=== PATIENT | female | born 1960 | race Caucasian/White ===

== ENCOUNTER 2021-07-05 12:41 | Inpatient (IN) ==
[2021-07-06] MEDS ORDERED: Dextrose Gel 15 GM/37.5 ML TUBE PO PRN ×2 (20:22)
[2021-07-06] MEDS ORDERED: D5% in Water 1,000 ML IVC PRN (20:22)
[2021-07-06] MEDS ORDERED: *HR* Dextrose 50 % in Water (Syg) 50 ML SYRINGE IVP PRN (20:22)
[2021-07-06] MEDS: Sucralfate 1 GM TABLET PO SCH (23:41)
[2021-07-06] MEDS: OLANZapine 5 MG TAB.RAPDIS PO SCH (23:41)
[2021-07-06] MEDS: rOPINIRole 1 MG TABLET PO SCH (23:41)
[2021-07-06] MEDS: Ipratropium/Albuterol Neb 3 ML IH SCH (23:42)
[2021-07-06] MEDS: Melatonin 3 MG TABLET PO PRN (23:42)
[2021-07-06] MEDS: diazePAM 5 MG TABLET PO SCH (23:42)
[2021-07-06] MEDS: Divalproex (12 HR) 500 MG TABLET PO SCH (23:42)
[2021-07-06] MEDS: Gabapentin 400 MG CAPSULE PO SCH (23:58)
[2021-07-06] MEDS: Insulin LISPRO 300 UNITS/3 ML VIAL SUBQ SCH ×2 (23:59)
[2021-07-07] MEDS: OLANZapine 5 MG TAB.RAPDIS PO SCH ×3 (00:03→22:02)
[2021-07-07] MEDS: Sucralfate 1 GM TABLET PO SCH ×6 (00:03→22:01)
[2021-07-07] MEDS: diazePAM 5 MG TABLET PO SCH ×5 (00:03→22:01)
[2021-07-07] MEDS: rOPINIRole 1 MG TABLET PO SCH ×3 (00:03→22:01)
[2021-07-07] MEDS: Divalproex (12 HR) 500 MG TABLET PO SCH ×3 (00:03→22:07)
[2021-07-07] MEDS: Melatonin 3 MG TABLET PO PRN (01:21)
[2021-07-07] MEDS: Ipratropium/Albuterol Neb 3 ML IH SCH ×5 (03:47→20:02)
[2021-07-07 05:57] LABS: Basophils # 0.1 K/mcL (0.0-0.2); Basophils % 0.6 %; Hematocrit 29.2 % (35.3-44.9); Hemoglobin 9.5 g/dL (11.5-15.4); Mean Corpuscular HGB Conc 32.5 g/dL (31.6-35.5); Mean Corpuscular Hemoglobin 32.8 pg (28.0-33.3); Mean Corpuscular Volume 100.7 fL (83.0-100.0); Mean Platelet Volume 9.6 fL (9.4-12.4); Monocytes # 1.2 K/mcL (0.0-1.3); Nucleated Red Blood Cells 0.2 /100 WBC (0); Platelet Count 366 K/mcL (140-400); Red Cell Distribution Width 14.5 % (11.5-14.5); White Blood Count 10.3 K/mcL (4.3-11.1)
[2021-07-07 07:06] LABS: Eosinophils # 0.4 K/mcL (0.0-0.6); Eosinophils % 3.4 %; Immature Granulocytes % 4.9 % (0-4); Lymphocytes % 19.8 %; Monocytes % 11.3 %
[2021-07-07 07:09] LABS: Neutrophils # 6.2 K/mcL (1.6-8.9)
[2021-07-07 07:17] LABS: Alanine Aminotransferase 17 Units/L (7-52); Albumin 3.5 g/dL (3.5-5.7); Albumin/Globulin Ratio 1.3 (1.1-2.2); Alkaline Phosphatase 57 Units/L (34-104); Aspartate Amino Transferase 18 Units/L (13-39); BUN/Creatinine Ratio 41 (6-26); Bilirubin,Total 0.3 mg/dL (0.3-1.0); Blood Urea Nitrogen 29 mg/dL (8-23); Calcium 9.9 mg/dL (8.6-10.3); Carbon Dioxide 29 mEq/L (23-29); Chloride 97 mEq/L (98-107); Globulin 2.7 g/dL (2.4-3.5); Glucose 117 mg/dL (70-105); Magnesium 1.7 mg/dL (1.6-2.6); Osmolality,Calculated 289 (280-300); Potassium 4.4 mEq/L (3.5-5.1); Sodium 136 mEq/L (136-145); Total Protein 6.2 g/dL (6.4-8.9); eGFR For African Americans > 60 (> 60); eGFR For Non-African Americans > 60 (> 60)
[2021-07-07 07:36] LABS: Thyroid Stimulating Hormone 3.462 mcIU/mL (0.340-5.600)
[2021-07-07] MEDS: Gabapentin 300 MG CAPSULE PO SCH (09:37)
[2021-07-07] MEDS: *HR* Metformin 500 MG TABLET PO SCH ×2 (09:37→15:38)
[2021-07-07] MEDS: Cholecalciferol (D-3) 1,000 UNIT (25MCG) TABLET PO SCH (09:37)
[2021-07-07] MEDS: Ascorbic Acid 500 MG TABLET PO SCH (09:37)
[2021-07-07] MEDS: Insulin LISPRO 300 UNITS/3 ML VIAL SUBQ SCH ×4 (10:57→22:01)
[2021-07-07 13:12] LABS: Adenovirus Not Detected (Not Detect); Bordetella Pertussis Not Detected (Not Detect); Chlamydophila pneumoniae Not Detected (Not Detect); Coronavirus 229E Not Detected (Not Detect); Coronavirus HKU1 Not Detected (Not Detect); Coronavirus NL63 Not Detected (Not Detect); Coronavirus OC43 Not Detected (Not Detect); Human Metapneumovirus Not Detected (Not Detect); Human Rhinovirus/Enterovirus Not Detected (Not Detect); Influenza A Subtype 2009 H1 Not Detected (Not Detect); Influenza B Not Detected (Not Detect); Mycoplasma pneumoniae Not Detected (Not Detect); Parainfluenza Virus 1 Not Detected (Not Detect); Parainfluenza Virus 2 Not Detected (Not Detect); Parainfluenza Virus 3 Not Detected (Not Detect); Parainfluenza Virus 4 Not Detected (Not Detect); Respiratory Syncytial Virus Not Detected (Not Detect); SARS-CoV-2 Not Detected (Not Detect)
[2021-07-07] MEDS: *HR* Enoxaparin 60 MG/0.6 ML SYRINGE SQ SCH (17:05)
[2021-07-07] MEDS: Gabapentin 400 MG CAPSULE PO SCH (22:01)
[2021-07-08] MEDS: Ipratropium/Albuterol Neb 3 ML IH SCH ×6 (01:00→19:46)
[2021-07-08] MEDS: Sucralfate 1 GM TABLET PO SCH ×4 (05:06→20:48)
[2021-07-08] MEDS: *HR* Enoxaparin 60 MG/0.6 ML SYRINGE SQ SCH ×2 (05:06→16:23)
[2021-07-08] MEDS: diazePAM 5 MG TABLET PO SCH ×3 (07:49→20:47)
[2021-07-08] MEDS: Cholecalciferol (D-3) 1,000 UNIT (25MCG) TABLET PO SCH (07:49)
[2021-07-08] MEDS: Ascorbic Acid 500 MG TABLET PO SCH (07:49)
[2021-07-08] MEDS: Gabapentin 300 MG CAPSULE PO SCH (07:49)
[2021-07-08] MEDS: *HR* Metformin 500 MG TABLET PO SCH ×2 (07:49→16:23)
[2021-07-08] MEDS: Insulin LISPRO 300 UNITS/3 ML VIAL SUBQ SCH ×4 (07:53→20:47)
[2021-07-08] MEDS: *HR* HYDROcodone/Acet 5/325 mg TABLET PO PRN (11:42)
[2021-07-08] MEDS: haloperidoL 1 MG TABLET PO PRN (13:18)
[2021-07-08] MEDS: Divalproex (12 HR) 250 MG TABLET PO SCH ×2 (13:19→20:47)
[2021-07-08] MEDS: OLANZapine 5 MG TAB.RAPDIS PO SCH (20:46)
[2021-07-08] MEDS: Melatonin 3 MG TABLET PO PRN (20:46)
[2021-07-08] MEDS: rOPINIRole 1 MG TABLET PO SCH (20:48)
[2021-07-08] MEDS: Gabapentin 400 MG CAPSULE PO SCH (21:01)
[2021-07-09] MEDS: Ipratropium/Albuterol Neb 3 ML IH SCH ×7 (03:51→23:53)
[2021-07-09] MEDS: Sucralfate 1 GM TABLET PO SCH ×4 (05:54→21:26)
[2021-07-09] MEDS: *HR* Enoxaparin 60 MG/0.6 ML SYRINGE SQ SCH ×2 (05:54→16:53)
[2021-07-09] MEDS: Insulin LISPRO 300 UNITS/3 ML VIAL SUBQ SCH ×4 (09:27→21:37)
[2021-07-09] MEDS: Cholecalciferol (D-3) 1,000 UNIT (25MCG) TABLET PO SCH (09:28)
[2021-07-09] MEDS: diazePAM 5 MG TABLET PO SCH ×3 (09:29→21:26)
[2021-07-09] MEDS: *HR* Metformin 500 MG TABLET PO SCH ×2 (09:29→16:53)
[2021-07-09] MEDS: Ascorbic Acid 500 MG TABLET PO SCH (09:29)
[2021-07-09] MEDS: Gabapentin 300 MG CAPSULE PO SCH (09:29)
[2021-07-09] MEDS: rOPINIRole 1 MG TABLET PO SCH (21:25)
[2021-07-09] MEDS: Divalproex (12 HR) 250 MG TABLET PO SCH (21:25)
[2021-07-09] MEDS: OLANZapine 5 MG TAB.RAPDIS PO SCH (21:26)
[2021-07-09] MEDS: Gabapentin 400 MG CAPSULE PO SCH (21:37)
[2021-07-10] MEDS: Ipratropium/Albuterol Neb 3 ML IH SCH ×5 (03:58→19:58)
[2021-07-10] MEDS: *HR* Enoxaparin 60 MG/0.6 ML SYRINGE SQ SCH ×2 (05:59→18:22)
[2021-07-10] MEDS: *HR* HYDROcodone/Acet 5/325 mg TABLET PO PRN ×2 (05:59→18:21)
[2021-07-10] MEDS: Sucralfate 1 GM TABLET PO SCH ×4 (05:59→21:12)
[2021-07-10] MEDS: Insulin LISPRO 300 UNITS/3 ML VIAL SUBQ SCH ×4 (10:07→20:56)
[2021-07-10] MEDS: Cholecalciferol (D-3) 1,000 UNIT (25MCG) TABLET PO SCH (10:08)
[2021-07-10] MEDS: *HR* Metformin 500 MG TABLET PO SCH ×2 (10:09→18:20)
[2021-07-10] MEDS: diazePAM 5 MG TABLET PO SCH ×3 (10:09→21:10)
[2021-07-10] MEDS: Ascorbic Acid 500 MG TABLET PO SCH (10:09)
[2021-07-10] MEDS: Gabapentin 300 MG CAPSULE PO SCH (10:09)
[2021-07-10] MEDS: haloperidoL 1 MG TABLET PO PRN (12:44)
[2021-07-10] MEDS: Divalproex (12 HR) 250 MG TABLET PO SCH (21:11)
[2021-07-10] MEDS: rOPINIRole 1 MG TABLET PO SCH (21:13)
[2021-07-10] MEDS: OLANZapine 5 MG TAB.RAPDIS PO SCH (21:14)
[2021-07-10] MEDS: Gabapentin 400 MG CAPSULE PO SCH (21:17)
[2021-07-11] MEDS: Ipratropium/Albuterol Neb 3 ML IH SCH ×6 (00:04→20:27)
[2021-07-11] MEDS: *HR* Enoxaparin 60 MG/0.6 ML SYRINGE SQ SCH ×2 (05:02→18:03)
[2021-07-11] MEDS: Sucralfate 1 GM TABLET PO SCH ×4 (05:03→20:23)
[2021-07-11] MEDS: *HR* HYDROcodone/Acet 5/325 mg TABLET PO PRN ×2 (05:24→22:27)
[2021-07-11 06:47] LABS: Hematocrit 28.7 % (35.3-44.9); Mean Corpuscular HGB Conc 31.4 g/dL (31.6-35.5); Mean Corpuscular Hemoglobin 32.7 pg (28.0-33.3); Mean Corpuscular Volume 104.4 fL (83.0-100.0); Mean Platelet Volume 10.6 fL (9.4-12.4); Platelet Count 392 K/mcL (140-400); Red Blood Count 2.75 M/mcL (3.82-4.97); Red Cell Distribution Width 14.7 % (11.5-14.5); White Blood Count 9.9 K/mcL (4.3-11.1)
[2021-07-11 07:14] LABS: Alanine Aminotransferase 13 Units/L (7-52); Albumin 3.5 g/dL (3.5-5.7); Albumin/Globulin Ratio 1.5 (1.1-2.2); Alkaline Phosphatase 66 Units/L (34-104); Aspartate Amino Transferase 11 Units/L (13-39); BUN/Creatinine Ratio 18 (6-26); Bilirubin,Total 0.3 mg/dL (0.3-1.0); Blood Urea Nitrogen 13 mg/dL (8-23); Calcium 8.9 mg/dL (8.6-10.3); Carbon Dioxide 28 mEq/L (23-29); Chloride 98 mEq/L (98-107); Globulin 2.4 g/dL (2.4-3.5); Glucose 85 mg/dL (70-105); Magnesium 1.3 mg/dL (1.6-2.6); Osmolality,Calculated 277 (280-300); Potassium 4.7 mEq/L (3.5-5.1); Sodium 134 mEq/L (136-145); Total Protein 5.9 g/dL (6.4-8.9); eGFR For African Americans > 60 (> 60); eGFR For Non-African Americans > 60 (> 60)
[2021-07-11] MEDS: Insulin LISPRO 300 UNITS/3 ML VIAL SUBQ SCH (08:34)
[2021-07-11] MEDS: Cholecalciferol (D-3) 1,000 UNIT (25MCG) TABLET PO SCH (08:35)
[2021-07-11] MEDS: Gabapentin 300 MG CAPSULE PO SCH (08:36)
[2021-07-11] MEDS: *HR* Metformin 500 MG TABLET PO SCH ×2 (08:36→17:59)
[2021-07-11] MEDS: Ascorbic Acid 500 MG TABLET PO SCH (08:36)
[2021-07-11] MEDS: diazePAM 5 MG TABLET PO SCH ×3 (08:37→20:21)
[2021-07-11] MEDS: Divalproex (12 HR) 250 MG TABLET PO SCH (20:20)
[2021-07-11] MEDS: rOPINIRole 1 MG TABLET PO SCH (20:21)
[2021-07-11] MEDS: OLANZapine 5 MG TAB.RAPDIS PO SCH (20:22)
[2021-07-11] MEDS: Magnesium Oxide 400 MG TABLET PO SCH (20:23)
[2021-07-11] MEDS: Gabapentin 400 MG CAPSULE PO SCH (20:23)
[2021-07-12] MEDS: Ipratropium/Albuterol Neb 3 ML IH SCH ×7 (00:43→23:43)
[2021-07-12] MEDS: *HR* HYDROcodone/Acet 5/325 mg TABLET PO PRN ×2 (03:14→21:29)
[2021-07-12] MEDS: *HR* Enoxaparin 60 MG/0.6 ML SYRINGE SQ SCH ×2 (06:38→16:44)
[2021-07-12] MEDS: Magnesium Oxide 400 MG TABLET PO SCH ×2 (09:36→20:24)
[2021-07-12] MEDS: *HR* Metformin 500 MG TABLET PO SCH ×2 (09:36→16:43)
[2021-07-12] MEDS: diazePAM 5 MG TABLET PO SCH ×3 (09:36→20:24)
[2021-07-12] MEDS: Gabapentin 300 MG CAPSULE PO SCH (09:36)
[2021-07-12] MEDS: Cholecalciferol (D-3) 1,000 UNIT (25MCG) TABLET PO SCH (09:36)
[2021-07-12] MEDS: Sucralfate 1 GM TABLET PO SCH ×4 (09:36→20:24)
[2021-07-12] MEDS: Ascorbic Acid 500 MG TABLET PO SCH (09:36)
[2021-07-12] MEDS: rOPINIRole 1 MG TABLET PO SCH (20:23)
[2021-07-12] MEDS: Divalproex (12 HR) 250 MG TABLET PO SCH (20:23)
[2021-07-12] MEDS: OLANZapine 5 MG TAB.RAPDIS PO SCH (20:23)
[2021-07-12] MEDS: Melatonin 3 MG TABLET PO PRN (20:24)
[2021-07-12] MEDS: Gabapentin 400 MG CAPSULE PO SCH (20:24)
[2021-07-13] MEDS: Ipratropium/Albuterol Neb 3 ML IH SCH ×6 (03:57→23:47)
[2021-07-13] MEDS: *HR* HYDROcodone/Acet 5/325 mg TABLET PO PRN ×2 (04:59→21:32)
[2021-07-13] MEDS: *HR* Enoxaparin 60 MG/0.6 ML SYRINGE SQ SCH ×2 (05:00→16:49)
[2021-07-13] MEDS: Sucralfate 1 GM TABLET PO SCH ×4 (05:00→20:03)
[2021-07-13] MEDS: Magnesium Oxide 400 MG TABLET PO SCH ×2 (08:09→19:57)
[2021-07-13] MEDS: Cholecalciferol (D-3) 1,000 UNIT (25MCG) TABLET PO SCH (08:09)
[2021-07-13] MEDS: Ascorbic Acid 500 MG TABLET PO SCH (08:09)
[2021-07-13] MEDS: *HR* Metformin 500 MG TABLET PO SCH ×2 (08:09→16:49)
[2021-07-13] MEDS: diazePAM 5 MG TABLET PO SCH ×3 (08:09→19:57)
[2021-07-13] MEDS: Gabapentin 300 MG CAPSULE PO SCH (08:09)
[2021-07-13] MEDS: OLANZapine 5 MG TAB.RAPDIS PO SCH (19:56)
[2021-07-13] MEDS: rOPINIRole 1 MG TABLET PO SCH (19:57)
[2021-07-13] MEDS: Divalproex (12 HR) 250 MG TABLET PO SCH (19:57)
[2021-07-13] MEDS: Melatonin 3 MG TABLET PO PRN (20:03)
[2021-07-13] MEDS: Gabapentin 400 MG CAPSULE PO SCH (20:04)
[2021-07-14] MEDS: Ipratropium/Albuterol Neb 3 ML IH SCH ×6 (03:28→20:37)
[2021-07-14] MEDS: *HR* Enoxaparin 60 MG/0.6 ML SYRINGE SQ SCH ×2 (03:44→16:43)
[2021-07-14] MEDS: Sucralfate 1 GM TABLET PO SCH ×4 (09:55→20:20)
[2021-07-14] MEDS: diazePAM 5 MG TABLET PO SCH ×3 (09:56→20:18)
[2021-07-14] MEDS: Gabapentin 300 MG CAPSULE PO SCH (09:57)
[2021-07-14] MEDS: Magnesium Oxide 400 MG TABLET PO SCH ×2 (09:58→20:19)
[2021-07-14] MEDS: *HR* Metformin 500 MG TABLET PO SCH ×2 (09:58→16:46)
[2021-07-14] MEDS: Ascorbic Acid 500 MG TABLET PO SCH (09:58)
[2021-07-14] MEDS: Cholecalciferol (D-3) 1,000 UNIT (25MCG) TABLET PO SCH (09:59)
[2021-07-14] MEDS: Divalproex (12 HR) 250 MG TABLET PO SCH (20:15)
[2021-07-14] MEDS: rOPINIRole 1 MG TABLET PO SCH (20:16)
[2021-07-14] MEDS: Gabapentin 400 MG CAPSULE PO SCH (20:17)
[2021-07-14] MEDS: OLANZapine 5 MG TAB.RAPDIS PO SCH (20:17)
[2021-07-15] MEDS: Ipratropium/Albuterol Neb 3 ML IH SCH ×5 (03:36→19:48)
[2021-07-15] MEDS: *HR* Enoxaparin 60 MG/0.6 ML SYRINGE SQ SCH ×2 (04:29→16:57)
[2021-07-15] MEDS: *HR* HYDROcodone/Acet 5/325 mg TABLET PO PRN (04:48)
[2021-07-15] MEDS: Sucralfate 1 GM TABLET PO SCH ×4 (04:49→20:13)
[2021-07-15] MEDS: Magnesium Oxide 400 MG TABLET PO SCH ×2 (09:13→20:11)
[2021-07-15] MEDS: Gabapentin 300 MG CAPSULE PO SCH (09:13)
[2021-07-15] MEDS: Cholecalciferol (D-3) 1,000 UNIT (25MCG) TABLET PO SCH (09:13)
[2021-07-15] MEDS: *HR* Metformin 500 MG TABLET PO SCH ×2 (09:13→16:57)
[2021-07-15] MEDS: Ascorbic Acid 500 MG TABLET PO SCH (09:14)
[2021-07-15] MEDS: diazePAM 5 MG TABLET PO SCH ×3 (09:14→20:11)
[2021-07-15 11:19] LABS: Basophils % 0.3 %; Eosinophils # 0.2 K/mcL (0.0-0.6); Eosinophils % 1.7 %; Hematocrit 30.7 % (35.3-44.9); Hemoglobin 9.5 g/dL (11.5-15.4); Immature Granulocytes % 1.2 % (0-4); Lymphocytes # 1.4 K/mcL (0.6-4.6); Lymphocytes % 15.2 %; Mean Corpuscular HGB Conc 30.9 g/dL (31.6-35.5); Mean Corpuscular Hemoglobin 32.8 pg (28.0-33.3); Mean Corpuscular Volume 105.9 fL (83.0-100.0); Mean Platelet Volume 9.5 fL (9.4-12.4); Monocytes # 0.7 K/mcL (0.0-1.3); Monocytes % 8.2 %; Neutrophils # 6.7 K/mcL (1.6-8.9); Nucleated Red Blood Cells 0.4 /100 WBC (0); Platelet Count 358 K/mcL (140-400); Red Cell Distribution Width 14.5 % (11.5-14.5); Segmented Neutrophils % 73.4 %; White Blood Count 9.1 K/mcL (4.3-11.1)
[2021-07-15 11:32] LABS: BUN/Creatinine Ratio 13 (6-26); Blood Urea Nitrogen 9 mg/dL (8-23); Carbon Dioxide 33 mEq/L (23-29); Chloride 95 mEq/L (98-107); Glucose 105 mg/dL (70-105); Osmolality,Calculated 279 (280-300); Potassium 4.2 mEq/L (3.5-5.1); Sodium 135 mEq/L (136-145); eGFR For African Americans > 60 (> 60); eGFR For Non-African Americans > 60 (> 60)
[2021-07-15 12:09] LABS: Adenovirus Not Detected (Not Detect); Bordetella Pertussis Not Detected (Not Detect); Chlamydophila pneumoniae Not Detected (Not Detect); Coronavirus 229E Not Detected (Not Detect); Coronavirus HKU1 Not Detected (Not Detect); Coronavirus NL63 Not Detected (Not Detect); Coronavirus OC43 Not Detected (Not Detect); Human Metapneumovirus Not Detected (Not Detect); Human Rhinovirus/Enterovirus Not Detected (Not Detect); Influenza A Subtype 2009 H1 Not Detected (Not Detect); Influenza B Not Detected (Not Detect); Mycoplasma pneumoniae Not Detected (Not Detect); Parainfluenza Virus 1 Not Detected (Not Detect); Parainfluenza Virus 2 Not Detected (Not Detect); Parainfluenza Virus 3 Not Detected (Not Detect); Parainfluenza Virus 4 Not Detected (Not Detect); Respiratory Syncytial Virus Not Detected (Not Detect); SARS-CoV-2 Not Detected (Not Detect)
[2021-07-15] MEDS: Divalproex (12 HR) 250 MG TABLET PO SCH (20:08)
[2021-07-15] MEDS: OLANZapine 5 MG TAB.RAPDIS PO SCH (20:10)
[2021-07-15] MEDS: rOPINIRole 1 MG TABLET PO SCH (20:11)
[2021-07-15] MEDS: Gabapentin 400 MG CAPSULE PO SCH (20:11)
[2021-07-16] MEDS: Ipratropium/Albuterol Neb 3 ML IH SCH ×8 (00:15→23:59)
[2021-07-16] MEDS: *HR* Enoxaparin 60 MG/0.6 ML SYRINGE SQ SCH ×2 (05:10→16:59)
[2021-07-16] MEDS ORDERED: 0.9 % Sodium Chloride 1,000 ML IVC SCH (07:30)
[2021-07-16 07:49] LABS: BUN/Creatinine Ratio 17 (6-26); Blood Urea Nitrogen 10 mg/dL (8-23); Calcium 8.7 mg/dL (8.6-10.3); Carbon Dioxide 34 mEq/L (23-29); Chloride 95 mEq/L (98-107); Glucose 82 mg/dL (70-105); Osmolality,Calculated 274 (280-300); Potassium 4.6 mEq/L (3.5-5.1); Sodium 133 mEq/L (136-145); eGFR For African Americans > 60 (> 60); eGFR For Non-African Americans > 60 (> 60)
[2021-07-16 07:55] LABS: Basophils % 0.4 %; Eosinophils # 0.2 K/mcL (0.0-0.6); Eosinophils % 1.9 %; Hematocrit 27.8 % (35.3-44.9); Hemoglobin 8.9 g/dL (11.5-15.4); Immature Granulocytes % 1.4 % (0-4); Lymphocytes # 1.4 K/mcL (0.6-4.6); Lymphocytes % 17.3 %; Mean Corpuscular Hemoglobin 33.6 pg (28.0-33.3); Mean Corpuscular Volume 104.9 fL (83.0-100.0); Mean Platelet Volume 9.9 fL (9.4-12.4); Monocytes # 0.8 K/mcL (0.0-1.3); Monocytes % 9.9 %; Neutrophils # 5.4 K/mcL (1.6-8.9); Nucleated Red Blood Cells 0.5 /100 WBC (0); Platelet Count 361 K/mcL (140-400); Red Blood Count 2.65 M/mcL (3.82-4.97); Red Cell Distribution Width 14.9 % (11.5-14.5); Segmented Neutrophils % 69.1 %; White Blood Count 7.8 K/mcL (4.3-11.1)
[2021-07-16] MEDS: *HR* Metformin 500 MG TABLET PO SCH ×2 (08:32→16:59)
[2021-07-16] MEDS: Ascorbic Acid 500 MG TABLET PO SCH (08:32)
[2021-07-16] MEDS: Magnesium Oxide 400 MG TABLET PO SCH ×2 (08:32→20:25)
[2021-07-16] MEDS: Sucralfate 1 GM TABLET PO SCH ×4 (08:32→20:24)
[2021-07-16] MEDS: Cholecalciferol (D-3) 1,000 UNIT (25MCG) TABLET PO SCH (08:33)
[2021-07-16] MEDS: diazePAM 5 MG TABLET PO SCH ×3 (08:50→20:21)
[2021-07-16] MEDS: Gabapentin 300 MG CAPSULE PO SCH (08:50)
[2021-07-16] MEDS: Divalproex (12 HR) 250 MG TABLET PO SCH (20:20)
[2021-07-16] MEDS: rOPINIRole 1 MG TABLET PO SCH (20:21)
[2021-07-16] MEDS: Gabapentin 400 MG CAPSULE PO SCH (20:22)
[2021-07-16] MEDS: OLANZapine 5 MG TAB.RAPDIS PO SCH (20:24)
[2021-07-17] MEDS: Ipratropium/Albuterol Neb 3 ML IH SCH ×6 (03:11→23:06)
[2021-07-17] MEDS: *HR* Enoxaparin 60 MG/0.6 ML SYRINGE SQ SCH ×2 (05:18→16:00)
[2021-07-17] MEDS: Sucralfate 1 GM TABLET PO SCH ×4 (05:49→21:02)
[2021-07-17] MEDS: Gabapentin 300 MG CAPSULE PO SCH (08:20)
[2021-07-17] MEDS: Cholecalciferol (D-3) 1,000 UNIT (25MCG) TABLET PO SCH (08:20)
[2021-07-17] MEDS: Ascorbic Acid 500 MG TABLET PO SCH (08:20)
[2021-07-17] MEDS: Magnesium Oxide 400 MG TABLET PO SCH ×2 (08:20→21:00)
[2021-07-17] MEDS: diazePAM 5 MG TABLET PO SCH ×3 (08:21→21:01)
[2021-07-17] MEDS: *HR* Metformin 500 MG TABLET PO SCH ×2 (08:21→16:00)
[2021-07-17] MEDS: Divalproex (12 HR) 250 MG TABLET PO SCH (20:58)
[2021-07-17] MEDS: Gabapentin 400 MG CAPSULE PO SCH (20:59)
[2021-07-17] MEDS: rOPINIRole 1 MG TABLET PO SCH (21:00)
[2021-07-17] MEDS: OLANZapine 5 MG TAB.RAPDIS PO SCH (21:01)
[2021-07-18] MEDS: Ipratropium/Albuterol Neb 3 ML IH SCH ×7 (03:20→23:47)
[2021-07-18] MEDS: *HR* Enoxaparin 60 MG/0.6 ML SYRINGE SQ SCH ×2 (04:44→17:23)
[2021-07-18] MEDS: Sucralfate 1 GM TABLET PO SCH ×4 (08:39→21:26)
[2021-07-18] MEDS: Ascorbic Acid 500 MG TABLET PO SCH (08:39)
[2021-07-18] MEDS: *HR* Metformin 500 MG TABLET PO SCH ×2 (08:39→17:23)
[2021-07-18] MEDS: Cholecalciferol (D-3) 1,000 UNIT (25MCG) TABLET PO SCH (08:40)
[2021-07-18] MEDS: diazePAM 5 MG TABLET PO SCH ×3 (08:40→21:29)
[2021-07-18] MEDS: Gabapentin 300 MG CAPSULE PO SCH (08:40)
[2021-07-18] MEDS: Magnesium Oxide 400 MG TABLET PO SCH ×2 (08:40→21:30)
[2021-07-18] MEDS: Divalproex (12 HR) 250 MG TABLET PO SCH (21:26)
[2021-07-18] MEDS: OLANZapine 5 MG TAB.RAPDIS PO SCH (21:28)
[2021-07-18] MEDS: rOPINIRole 1 MG TABLET PO SCH (21:28)
[2021-07-18] MEDS: Gabapentin 400 MG CAPSULE PO SCH (21:34)
[2021-07-19] MEDS: Ipratropium/Albuterol Neb 3 ML IH SCH ×3 (01:21→06:41)
[2021-07-19] MEDS: *HR* Enoxaparin 60 MG/0.6 ML SYRINGE SQ SCH (05:39)
[2021-07-19 07:19] LABS: Basophils % 0.5 %; Eosinophils # 0.1 K/mcL (0.0-0.6); Eosinophils % 3.2 %; Hematocrit 27.4 % (35.3-44.9); Immature Granulocytes % 1.7 % (0-4); Lymphocytes % 24.1 %; Mean Corpuscular HGB Conc 32.8 g/dL (31.6-35.5); Mean Corpuscular Hemoglobin 33.5 pg (28.0-33.3); Mean Corpuscular Volume 101.9 fL (83.0-100.0); Mean Platelet Volume 9.5 fL (9.4-12.4); Monocytes # 0.4 K/mcL (0.0-1.3); Monocytes % 10.5 %; Neutrophils # 2.5 K/mcL (1.6-8.9); Nucleated Red Blood Cells 0.5 /100 WBC (0); Platelet Count 302 K/mcL (140-400); Red Blood Count 2.69 M/mcL (3.82-4.97); Red Cell Distribution Width 14.3 % (11.5-14.5); White Blood Count 4.1 K/mcL (4.3-11.1)
[2021-07-19 07:25] VITALS: BP 109/72; PULSE 87; RESP 15; TEMP 97.5; O2SAT 96
[2021-07-19 07:36] LABS: BUN/Creatinine Ratio 18 (6-26); Blood Urea Nitrogen 11 mg/dL (8-23); Calcium 8.8 mg/dL (8.6-10.3); Carbon Dioxide 35 mEq/L (23-29); Chloride 91 mEq/L (98-107); Glucose 87 mg/dL (70-105); Osmolality,Calculated 271 (280-300); Sodium 131 mEq/L (136-145); eGFR For African Americans > 60 (> 60); eGFR For Non-African Americans > 60 (> 60)
[2021-07-19] MEDS: Magnesium Oxide 400 MG TABLET PO SCH (09:09)
[2021-07-19] MEDS: Ascorbic Acid 500 MG TABLET PO SCH (09:09)
[2021-07-19] MEDS: diazePAM 5 MG TABLET PO SCH (09:09)
[2021-07-19] MEDS: Sucralfate 1 GM TABLET PO SCH (09:10)
[2021-07-19] MEDS: Cholecalciferol (D-3) 1,000 UNIT (25MCG) TABLET PO SCH (09:10)
[2021-07-19] MEDS: Gabapentin 300 MG CAPSULE PO SCH (09:10)
[2021-07-19] MEDS: *HR* Metformin 500 MG TABLET PO SCH (09:10)
== END 2021-07-19 12:14 | disposition home health service (06) | DRG 946 ==
LOC: INPGRE 07-06 18:19
PROVIDERS: ADMIT Family Medicine; ATTEND Family Medicine

== ENCOUNTER 2021-08-16 15:44 | Inpatient (IN) ==
[2021-08-17] MEDS: Ipratropium/Albuterol Neb 3 ML IH SCH ×4 (11:59→23:54)
[2021-08-17] MEDS: *HR* HYDROcodone/Acet 5/325 mg TABLET PO PRN (17:20)
[2021-08-17] MEDS: diazePAM 5 MG TABLET PO SCH ×2 (17:22→20:48)
[2021-08-17] MEDS: predniSONE 20 MG TABLET PO SCH (17:22)
[2021-08-17] MEDS: Budesonide/Formoterol 160/4.5 1 PUFF INH IH SCH (19:47)
[2021-08-17] MEDS: OLANZapine 5 MG TAB.RAPDIS PO SCH (20:47)
[2021-08-17] MEDS: Divalproex (12 HR) 500 MG TABLET PO SCH (20:47)
[2021-08-17] MEDS: Doxycycline 100 MG CAPSULE PO SCH (20:47)
[2021-08-17] MEDS: rOPINIRole 1 MG TABLET PO SCH (20:47)
[2021-08-17] MEDS: Gabapentin 400 MG CAPSULE PO SCH (20:48)
[2021-08-17] MEDS: Magnesium Oxide 400 MG TABLET PO SCH (20:48)
[2021-08-17] MEDS: gemfibroziL 600 MG TABLET PO SCH (20:48)
[2021-08-18] MEDS: Ipratropium/Albuterol Neb 3 ML IH SCH ×6 (03:51→23:55)
[2021-08-18 06:07] LABS: Basophils % 0.2 %; Hematocrit 29.2 % (35.3-44.9); Hemoglobin 9.4 g/dL (11.5-15.4); Immature Granulocytes % 3.7 % (0-4); Mean Corpuscular HGB Conc 32.2 g/dL (31.6-35.5); Mean Corpuscular Hemoglobin 33.6 pg (28.0-33.3); Mean Corpuscular Volume 104.3 fL (83.0-100.0); Mean Platelet Volume 9.6 fL (9.4-12.4); Monocytes # 0.9 K/mcL (0.0-1.3); Monocytes % 4.9 %; Neutrophils # 16.5 K/mcL (1.6-8.9); Platelet Count 311 K/mcL (140-400); Red Cell Distribution Width 13.3 % (11.5-14.5); Segmented Neutrophils % 86.2 %; White Blood Count 19.1 K/mcL (4.3-11.1)
[2021-08-18] MEDS: *HR* Enoxaparin 40 MG/0.4 ML SYRINGE SQ SCH (06:19)
[2021-08-18 06:44] LABS: BUN/Creatinine Ratio 21 (6-26); Blood Urea Nitrogen 13 mg/dL (8-23); Calcium 8.9 mg/dL (8.6-10.3); Carbon Dioxide 31 mEq/L (23-29); Chloride 83 mEq/L (98-107); Potassium 4.6 mEq/L (3.5-5.1); Sodium 124 mEq/L (136-145); eGFR For African Americans > 60 (> 60); eGFR For Non-African Americans > 60 (> 60)
[2021-08-18 06:47] LABS: Glucose 187 mg/dL (70-105); Osmolality,Calculated 263 (280-300)
[2021-08-18] MEDS: Doxycycline 100 MG CAPSULE PO SCH ×2 (08:46→20:42)
[2021-08-18] MEDS: predniSONE 20 MG TABLET PO SCH (08:46)
[2021-08-18] MEDS: Magnesium Oxide 400 MG TABLET PO SCH ×2 (08:47→20:43)
[2021-08-18] MEDS: gemfibroziL 600 MG TABLET PO SCH ×2 (08:47→20:43)
[2021-08-18] MEDS: diazePAM 5 MG TABLET PO SCH ×3 (08:47→20:42)
[2021-08-18] MEDS: Ascorbic Acid 500 MG TABLET PO SCH (08:48)
[2021-08-18] MEDS: Cholecalciferol (D-3) 1,000 UNIT (25MCG) TABLET PO SCH ×2 (08:48→11:13)
[2021-08-18] MEDS ORDERED: Nicotine 14 MG PATCH.TD24 TD SCH (09:00)
[2021-08-18] MEDS: Budesonide/Formoterol 160/4.5 1 PUFF INH IH SCH ×2 (09:14→20:07)
[2021-08-18] MEDS: Gabapentin 300 MG CAPSULE PO SCH (11:13)
[2021-08-18] MEDS: *HR* HYDROcodone/Acet 5/325 mg TABLET PO PRN (16:41)
[2021-08-18] MEDS: OLANZapine 5 MG TAB.RAPDIS PO SCH (20:41)
[2021-08-18] MEDS: Divalproex (12 HR) 500 MG TABLET PO SCH (20:42)
[2021-08-18] MEDS: rOPINIRole 1 MG TABLET PO SCH (20:42)
[2021-08-18] MEDS: Gabapentin 400 MG CAPSULE PO SCH (20:52)
[2021-08-19] MEDS: Ipratropium/Albuterol Neb 3 ML IH SCH ×5 (04:28→19:58)
[2021-08-19] MEDS: *HR* Enoxaparin 40 MG/0.4 ML SYRINGE SQ SCH (06:07)
[2021-08-19] MEDS: Budesonide/Formoterol 160/4.5 1 PUFF INH IH SCH ×2 (08:01→19:58)
[2021-08-19] MEDS: gemfibroziL 600 MG TABLET PO SCH ×2 (08:35→20:39)
[2021-08-19] MEDS: Cholecalciferol (D-3) 1,000 UNIT (25MCG) TABLET PO SCH (08:35)
[2021-08-19] MEDS: Doxycycline 100 MG CAPSULE PO SCH ×2 (08:35→20:39)
[2021-08-19] MEDS: Gabapentin 300 MG CAPSULE PO SCH (08:35)
[2021-08-19] MEDS: diazePAM 5 MG TABLET PO SCH ×3 (08:36→20:39)
[2021-08-19] MEDS: Ascorbic Acid 500 MG TABLET PO SCH (08:36)
[2021-08-19] MEDS: Magnesium Oxide 400 MG TABLET PO SCH ×2 (08:37→20:39)
[2021-08-19] MEDS: predniSONE 10 MG TABLET PO SCH (08:38)
[2021-08-19 12:15] LABS: Basophils % 0.2 %; Eosinophils # 0.1 K/mcL (0.0-0.6); Hematocrit 28.2 % (35.3-44.9); Hemoglobin 9.3 g/dL (11.5-15.4); Immature Granulocytes % 3.9 % (0-4); Lymphocytes # 2.3 K/mcL (0.6-4.6); Lymphocytes % 17.4 %; Mean Corpuscular Hemoglobin 34.3 pg (28.0-33.3); Mean Corpuscular Volume 104.1 fL (83.0-100.0); Mean Platelet Volume 9.4 fL (9.4-12.4); Monocytes # 0.7 K/mcL (0.0-1.3); Neutrophils # 9.7 K/mcL (1.6-8.9); Platelet Count 312 K/mcL (140-400); Red Blood Count 2.71 M/mcL (3.82-4.97); Red Cell Distribution Width 13.9 % (11.5-14.5); Segmented Neutrophils % 72.5 %; White Blood Count 13.4 K/mcL (4.3-11.1)
[2021-08-19 12:39] LABS: BUN/Creatinine Ratio 14 (6-26); Blood Urea Nitrogen 9 mg/dL (8-23); Calcium 8.9 mg/dL (8.6-10.3); Carbon Dioxide 35 mEq/L (23-29); Chloride 80 mEq/L (98-107); Glucose 87 mg/dL (70-105); Osmolality,Calculated 244 (280-300); Potassium 5.3 mEq/L (3.5-5.1); Sodium 118 mEq/L (136-145); eGFR For African Americans > 60 (> 60); eGFR For Non-African Americans > 60 (> 60)
[2021-08-19] MEDS: 0.9 % Sodium Chloride 1,000 ML IVC SCH (14:29)
[2021-08-19] MEDS: *HR* HYDROcodone/Acet 5/325 mg TABLET PO PRN (16:53)
[2021-08-19] MEDS: Divalproex (12 HR) 500 MG TABLET PO SCH (20:37)
[2021-08-19] MEDS: OLANZapine 5 MG TAB.RAPDIS PO SCH (20:38)
[2021-08-19] MEDS: rOPINIRole 1 MG TABLET PO SCH (20:38)
[2021-08-19] MEDS: Gabapentin 400 MG CAPSULE PO SCH (20:41)
[2021-08-20] MEDS: Ipratropium/Albuterol Neb 3 ML IH SCH ×7 (00:13→23:34)
[2021-08-20] MEDS: 0.9 % Sodium Chloride 1,000 ML IVC SCH (04:29)
[2021-08-20] MEDS: *HR* Enoxaparin 40 MG/0.4 ML SYRINGE SQ SCH (04:30)
[2021-08-20 04:46] LABS: Basophils # 0.1 K/mcL (0.0-0.2); Basophils % 0.6 %; Eosinophils # 0.2 K/mcL (0.0-0.6); Eosinophils % 1.6 %; Hematocrit 27.6 % (35.3-44.9); Hemoglobin 9.2 g/dL (11.5-15.4); Immature Granulocytes % 5.9 % (0-4); Lymphocytes # 2.1 K/mcL (0.6-4.6); Lymphocytes % 19.6 %; Mean Corpuscular HGB Conc 33.3 g/dL (31.6-35.5); Mean Corpuscular Hemoglobin 34.1 pg (28.0-33.3); Mean Corpuscular Volume 102.2 fL (83.0-100.0); Mean Platelet Volume 9.5 fL (9.4-12.4); Monocytes # 0.9 K/mcL (0.0-1.3); Monocytes % 8.6 %; Neutrophils # 6.7 K/mcL (1.6-8.9); Platelet Count 281 K/mcL (140-400); Red Cell Distribution Width 13.8 % (11.5-14.5); Segmented Neutrophils % 63.7 %; White Blood Count 10.5 K/mcL (4.3-11.1)
[2021-08-20 05:05] LABS: BUN/Creatinine Ratio 13 (6-26); Blood Urea Nitrogen 7 mg/dL (8-23); Calcium 8.3 mg/dL (8.6-10.3); Carbon Dioxide 35 mEq/L (23-29); Chloride 82 mEq/L (98-107); Glucose 94 mg/dL (70-105); Osmolality,Calculated 244 (280-300); Potassium 5.1 mEq/L (3.5-5.1); Sodium 118 mEq/L (136-145); eGFR For African Americans > 60 (> 60); eGFR For Non-African Americans > 60 (> 60)
[2021-08-20 06:21] LABS: Large Platelets Present (Not Present); Platelet Estimate Normal (Normal); Polychromasia 1+ (Not Present)
[2021-08-20] MEDS: Budesonide/Formoterol 160/4.5 1 PUFF INH IH SCH ×2 (07:07→20:06)
[2021-08-20] MEDS: Gabapentin 300 MG CAPSULE PO SCH (09:50)
[2021-08-20] MEDS: predniSONE 10 MG TABLET PO SCH (09:50)
[2021-08-20] MEDS: Ascorbic Acid 500 MG TABLET PO SCH (09:50)
[2021-08-20] MEDS: Magnesium Oxide 400 MG TABLET PO SCH ×2 (09:50→19:55)
[2021-08-20] MEDS: diazePAM 5 MG TABLET PO SCH ×3 (09:51→19:58)
[2021-08-20] MEDS: Doxycycline 100 MG CAPSULE PO SCH ×2 (09:51→19:55)
[2021-08-20] MEDS: Cholecalciferol (D-3) 1,000 UNIT (25MCG) TABLET PO SCH (09:51)
[2021-08-20] MEDS: gemfibroziL 600 MG TABLET PO SCH ×2 (09:51→19:57)
[2021-08-20] MEDS: rOPINIRole 1 MG TABLET PO SCH (19:56)
[2021-08-20] MEDS: OLANZapine 5 MG TAB.RAPDIS PO SCH (19:59)
[2021-08-20] MEDS: Divalproex (12 HR) 500 MG TABLET PO SCH (19:59)
[2021-08-20] MEDS: Gabapentin 400 MG CAPSULE PO SCH (20:02)
[2021-08-21] MEDS: Ipratropium/Albuterol Neb 3 ML IH SCH ×6 (04:11→23:44)
[2021-08-21] MEDS: *HR* Enoxaparin 40 MG/0.4 ML SYRINGE SQ SCH (04:27)
[2021-08-21] MEDS: *HR* HYDROcodone/Acet 5/325 mg TABLET PO PRN ×2 (05:44→13:26)
[2021-08-21] MEDS: Cholecalciferol (D-3) 1,000 UNIT (25MCG) TABLET PO SCH (07:46)
[2021-08-21] MEDS: diazePAM 5 MG TABLET PO SCH ×3 (07:46→21:03)
[2021-08-21] MEDS: Doxycycline 100 MG CAPSULE PO SCH ×2 (07:46→21:02)
[2021-08-21] MEDS: Ascorbic Acid 500 MG TABLET PO SCH (07:47)
[2021-08-21] MEDS: Magnesium Oxide 400 MG TABLET PO SCH ×2 (07:47→21:02)
[2021-08-21] MEDS: Gabapentin 300 MG CAPSULE PO SCH (07:47)
[2021-08-21] MEDS: gemfibroziL 600 MG TABLET PO SCH ×2 (07:47→21:03)
[2021-08-21] MEDS: predniSONE 20 MG TABLET PO SCH (08:09)
[2021-08-21 08:30] LABS: BUN/Creatinine Ratio 9 (6-26); Blood Urea Nitrogen 6 mg/dL (8-23); Calcium 8.4 mg/dL (8.6-10.3); Carbon Dioxide 26 mEq/L (23-29); Chloride 82 mEq/L (98-107); Glucose 174 mg/dL (70-105); Osmolality,Calculated 248 (280-300); Potassium 4.5 mEq/L (3.5-5.1); Sodium 118 mEq/L (136-145); eGFR For African Americans > 60 (> 60); eGFR For Non-African Americans > 60 (> 60)
[2021-08-21] MEDS ORDERED: 0.9 % Sodium Chloride 1,000 ML IVC SCH (10:15)
[2021-08-21] MEDS: Budesonide/Formoterol 160/4.5 1 PUFF INH IH SCH ×2 (11:25→20:02)
[2021-08-21] MEDS ORDERED: Furosemide 20 MG/2 ML VIAL IVP ONE (14:39)
[2021-08-21 17:07] LABS: Estimated Average Glucose 123 mg/dl; Hemoglobin A1C 5.9 %
[2021-08-21] MEDS: rOPINIRole 1 MG TABLET PO SCH (21:02)
[2021-08-21] MEDS: Divalproex (12 HR) 500 MG TABLET PO SCH (21:02)
[2021-08-21] MEDS: OLANZapine 5 MG TAB.RAPDIS PO SCH (21:02)
[2021-08-21] MEDS: Gabapentin 400 MG CAPSULE PO SCH (21:09)
[2021-08-22] MEDS: Ipratropium/Albuterol Neb 3 ML IH SCH ×5 (04:01→19:40)
[2021-08-22 04:50] LABS: Hematocrit 28.1 % (35.3-44.9); Mean Corpuscular Hemoglobin 33.6 pg (28.0-33.3); Mean Corpuscular Volume 104.9 fL (83.0-100.0); Mean Platelet Volume 9.4 fL (9.4-12.4); Platelet Count 261 K/mcL (140-400); Red Blood Count 2.68 M/mcL (3.82-4.97); Red Cell Distribution Width 13.9 % (11.5-14.5)
[2021-08-22 05:10] LABS: Alanine Aminotransferase 8 Units/L (7-52); Albumin 3.5 g/dL (3.5-5.7); Albumin/Globulin Ratio 2.3 (1.1-2.2); Alkaline Phosphatase 56 Units/L (34-104); Aspartate Amino Transferase 6 Units/L (13-39); BUN/Creatinine Ratio 16 (6-26); Bilirubin,Total 0.3 mg/dL (0.3-1.0); Blood Urea Nitrogen 13 mg/dL (8-23); Calcium 9.1 mg/dL (8.6-10.3); Carbon Dioxide 41 mEq/L (23-29); Chloride 87 mEq/L (98-107); Globulin 1.5 g/dL (2.4-3.5); Glucose 110 mg/dL (70-105); Magnesium 1.7 mg/dL (1.6-2.6); Osmolality,Calculated 273 (280-300); Potassium 4.8 mEq/L (3.5-5.1); Sodium 131 mEq/L (136-145); eGFR For African Americans > 60 (> 60); eGFR For Non-African Americans > 60 (> 60)
[2021-08-22] MEDS: *HR* Enoxaparin 40 MG/0.4 ML SYRINGE SQ SCH (05:17)
[2021-08-22 06:10] LABS: Thyroid Stimulating Hormone 1.111 mcIU/mL (0.340-5.600)
[2021-08-22] MEDS: Budesonide/Formoterol 160/4.5 1 PUFF INH IH SCH ×2 (07:17→19:40)
[2021-08-22] MEDS: diazePAM 5 MG TABLET PO SCH ×3 (08:59→21:57)
[2021-08-22] MEDS: Gabapentin 300 MG CAPSULE PO SCH (08:59)
[2021-08-22] MEDS: Ascorbic Acid 500 MG TABLET PO SCH (09:00)
[2021-08-22] MEDS: Cholecalciferol (D-3) 1,000 UNIT (25MCG) TABLET PO SCH (09:00)
[2021-08-22] MEDS: Doxycycline 100 MG CAPSULE PO SCH ×2 (09:01→21:56)
[2021-08-22] MEDS: gemfibroziL 600 MG TABLET PO SCH ×2 (09:01→21:56)
[2021-08-22] MEDS: predniSONE 20 MG TABLET PO SCH (09:02)
[2021-08-22] MEDS: Magnesium Oxide 400 MG TABLET PO SCH ×2 (09:02→21:57)
[2021-08-22] MEDS ORDERED: Furosemide 20 MG/2 ML VIAL IVP ONE ×3 (15:52→15:58)
[2021-08-22] MEDS ORDERED: Furosemide 40 MG/4 ML VIAL IVP ONE (15:56)
[2021-08-22 16:27] LABS: ABG Base Excess 9 mEq/L (-2 to 3); ABG HCO3 39 mEq/L (21-27); ABG Oxygen Saturation 89 % (95-98); ABG PCO2 83 mmHg (35-45); ABG PH 7.28 pH Units (7.32-7.45); ABG PO2 66 mmHg (85-104); ABG TCO2 42 mEq/L (20-26)
[2021-08-22] MEDS: Gabapentin 400 MG CAPSULE PO SCH (21:56)
[2021-08-22] MEDS: Divalproex (12 HR) 500 MG TABLET PO SCH (21:56)
[2021-08-22] MEDS: OLANZapine 5 MG TAB.RAPDIS PO SCH (21:57)
[2021-08-22] MEDS: rOPINIRole 1 MG TABLET PO SCH (21:57)
[2021-08-23] MEDS: Ipratropium/Albuterol Neb 3 ML IH SCH ×7 (00:01→23:46)
[2021-08-23] MEDS: *HR* Enoxaparin 40 MG/0.4 ML SYRINGE SQ SCH (04:39)
[2021-08-23 06:03] LABS: Basophils % 0.3 %; Eosinophils # 0.1 K/mcL (0.0-0.6); Eosinophils % 0.7 %; Hematocrit 31.4 % (35.3-44.9); Hemoglobin 9.8 g/dL (11.5-15.4); Immature Granulocytes % 3.9 % (0-4); Lymphocytes # 1.9 K/mcL (0.6-4.6); Lymphocytes % 14.3 %; Mean Corpuscular HGB Conc 31.2 g/dL (31.6-35.5); Mean Corpuscular Hemoglobin 33.8 pg (28.0-33.3); Mean Corpuscular Volume 108.3 fL (83.0-100.0); Mean Platelet Volume 9.4 fL (9.4-12.4); Monocytes # 1.2 K/mcL (0.0-1.3); Monocytes % 9.1 %; Nucleated Red Blood Cells 0.1 /100 WBC (0); Platelet Count 245 K/mcL (140-400); Red Cell Distribution Width 14.2 % (11.5-14.5); Segmented Neutrophils % 71.7 %; White Blood Count 13.5 K/mcL (4.3-11.1)
[2021-08-23 06:10] LABS: Neutrophils # 9.7 K/mcL (1.6-8.9)
[2021-08-23 06:43] LABS: BUN/Creatinine Ratio 21 (6-26); Blood Urea Nitrogen 15 mg/dL (8-23); Calcium 9.8 mg/dL (8.6-10.3); Carbon Dioxide 45 mEq/L (23-29); Chloride 81 mEq/L (98-107); Glucose 91 mg/dL (70-105); Osmolality,Calculated 268 (280-300); Sodium 129 mEq/L (136-145); eGFR For African Americans > 60 (> 60); eGFR For Non-African Americans > 60 (> 60)
[2021-08-23] MEDS: diazePAM 5 MG TABLET PO SCH (08:20)
[2021-08-23] MEDS: Magnesium Oxide 400 MG TABLET PO SCH ×2 (08:20→21:51)
[2021-08-23] MEDS: Cholecalciferol (D-3) 1,000 UNIT (25MCG) TABLET PO SCH (08:21)
[2021-08-23] MEDS: gemfibroziL 600 MG TABLET PO SCH ×2 (08:22→21:50)
[2021-08-23] MEDS: Doxycycline 100 MG CAPSULE PO SCH ×2 (08:22→21:50)
[2021-08-23] MEDS: Ascorbic Acid 500 MG TABLET PO SCH (08:22)
[2021-08-23] MEDS: Gabapentin 300 MG CAPSULE PO SCH (08:22)
[2021-08-23] MEDS ORDERED: predniSONE 10 MG TABLET PO SCH (09:00)
[2021-08-23] MEDS: Budesonide/Formoterol 160/4.5 1 PUFF INH IH SCH ×2 (09:13→19:40)
[2021-08-23 12:00] LABS: ABG Base Excess 13 mEq/L (-2 to 3); ABG HCO3 43 mEq/L (21-27); ABG Oxygen Saturation 98 % (95-98); ABG PCO2 81 mmHg (35-45); ABG PH 7.33 pH Units (7.32-7.45); ABG PO2 115 mmHg (85-104); ABG TCO2 46 mEq/L (20-26)
[2021-08-23] MEDS: Lactulose Oral Soln 20 GM/30 ML UDC PO SCH ×2 (16:25→21:50)
[2021-08-23 16:51] LABS: Bilirubin,Urine Negative (Negative); Blood,Urine Negative (Negative); Clarity,Urine Clear (Clear); Color,Urine Yellow (Yellow); Glucose,Urine (UA) Normal (Normal); Ketones,Urine Negative (Negative); Leukocyte Esterase,Urine Trace (Negative); Nitrite,Urine Negative (Negative); PH,Urine 7.5 pH Units (5.0-8.0); Protein,Urine Negative (Neg-Trace); Urobilinogen,Urine Normal (Normal)
[2021-08-23 16:53] LABS: Bacteria,Urine Few per hpf (None-Few); WBC,Urine 0-3 per hpf (0-3)
[2021-08-23] MEDS: MethylPREDNISolone 40 MG/ML VIAL IVP SCH ×2 (18:35→23:57)
[2021-08-23] MEDS ORDERED: Furosemide 20 MG/2 ML VIAL IVP SCH (21:00)
[2021-08-23] MEDS: acetaZOLAMIDE 250 MG TABLET PO SCH (21:50)
[2021-08-23] MEDS: Divalproex (12 HR) 500 MG TABLET PO SCH (21:50)
[2021-08-23] MEDS: diazePAM 2 MG TABLET PO SCH (21:51)
[2021-08-23] MEDS: OLANZapine 5 MG TAB.RAPDIS PO SCH (21:51)
[2021-08-23] MEDS: rOPINIRole 1 MG TABLET PO SCH (21:51)
[2021-08-23] MEDS: Furosemide 20 MG/2 ML VIAL IVP SCH (22:03)
[2021-08-24] MEDS: Ipratropium/Albuterol Neb 3 ML IH SCH ×5 (04:19→20:02)
[2021-08-24] MEDS: *HR* Enoxaparin 40 MG/0.4 ML SYRINGE SQ SCH (04:46)
[2021-08-24 06:18] LABS: Hematocrit 30.8 % (35.3-44.9); Hemoglobin 9.7 g/dL (11.5-15.4); Mean Corpuscular HGB Conc 31.5 g/dL (31.6-35.5); Mean Corpuscular Hemoglobin 33.3 pg (28.0-33.3); Mean Corpuscular Volume 105.8 fL (83.0-100.0); Mean Platelet Volume 9.5 fL (9.4-12.4); Platelet Count 228 K/mcL (140-400); Red Blood Count 2.91 M/mcL (3.82-4.97); Red Cell Distribution Width 13.3 % (11.5-14.5)
[2021-08-24 06:53] LABS: Alanine Aminotransferase 7 Units/L (7-52); Albumin 3.7 g/dL (3.5-5.7); Albumin/Globulin Ratio 1.6 (1.1-2.2); Alkaline Phosphatase 44 Units/L (34-104); Aspartate Amino Transferase 6 Units/L (13-39); BUN/Creatinine Ratio 25 (6-26); Bilirubin,Total 0.3 mg/dL (0.3-1.0); Blood Urea Nitrogen 20 mg/dL (8-23); Calcium 9.5 mg/dL (8.6-10.3); Carbon Dioxide 37 mEq/L (23-29); Chloride 83 mEq/L (98-107); Globulin 2.3 g/dL (2.4-3.5); Glucose 304 mg/dL (70-105); Magnesium 1.4 mg/dL (1.6-2.6); Osmolality,Calculated 284 (280-300); Potassium 3.7 mEq/L (3.5-5.1); Sodium 130 mEq/L (136-145); eGFR For African Americans > 60 (> 60); eGFR For Non-African Americans > 60 (> 60)
[2021-08-24] MEDS ORDERED: Furosemide 20 MG/2 ML VIAL IVP SCH (09:00)
[2021-08-24] MEDS: Budesonide/Formoterol 160/4.5 1 PUFF INH IH SCH ×2 (09:23→20:02)
[2021-08-24] MEDS: Lactulose Oral Soln 20 GM/30 ML UDC PO SCH ×2 (09:48→20:56)
[2021-08-24] MEDS: Cholecalciferol (D-3) 1,000 UNIT (25MCG) TABLET PO SCH (09:48)
[2021-08-24] MEDS: Magnesium Oxide 400 MG TABLET PO SCH ×2 (09:49→20:57)
[2021-08-24] MEDS: diazePAM 2 MG TABLET PO SCH ×3 (09:49→20:59)
[2021-08-24] MEDS: MethylPREDNISolone 40 MG/ML VIAL IVP SCH ×2 (09:50→16:42)
[2021-08-24] MEDS: Furosemide 20 MG/2 ML VIAL IVP SCH ×2 (09:50→20:58)
[2021-08-24] MEDS: Doxycycline 100 MG CAPSULE PO SCH ×2 (09:50→20:58)
[2021-08-24] MEDS: Ascorbic Acid 500 MG TABLET PO SCH (09:50)
[2021-08-24] MEDS: gemfibroziL 600 MG TABLET PO SCH ×2 (09:50→20:57)
[2021-08-24] MEDS: acetaZOLAMIDE 250 MG TABLET PO SCH ×2 (09:51→21:04)
[2021-08-24 11:50] LABS: ABG Base Excess 13 mEq/L (-2 to 3); ABG HCO3 40 mEq/L (21-27); ABG Oxygen Saturation 93 % (95-98); ABG PCO2 64 mmHg (35-45); ABG PH 7.41 pH Units (7.32-7.45); ABG PO2 71 mmHg (85-104); ABG TCO2 42 mEq/L (20-26)
[2021-08-24] MEDS: Divalproex (12 HR) 500 MG TABLET PO SCH (20:57)
[2021-08-24] MEDS: rOPINIRole 1 MG TABLET PO SCH (20:57)
[2021-08-24] MEDS: OLANZapine 5 MG TAB.RAPDIS PO SCH (20:59)
[2021-08-25] MEDS: Ipratropium/Albuterol Neb 3 ML IH SCH ×7 (00:04→23:58)
[2021-08-25] MEDS: MethylPREDNISolone 40 MG/ML VIAL IVP SCH ×4 (00:08→23:23)
[2021-08-25] MEDS: Budesonide/Formoterol 160/4.5 1 PUFF INH IH SCH ×2 (07:10→19:45)
[2021-08-25] MEDS: Lactulose Oral Soln 20 GM/30 ML UDC PO SCH ×2 (08:34→21:01)
[2021-08-25] MEDS: Furosemide 20 MG/2 ML VIAL IVP SCH ×2 (08:37→21:09)
[2021-08-25] MEDS: *HR* Enoxaparin 40 MG/0.4 ML SYRINGE SQ SCH (08:39)
[2021-08-25] MEDS: gemfibroziL 600 MG TABLET PO SCH ×2 (08:40→20:56)
[2021-08-25] MEDS: diazePAM 2 MG TABLET PO SCH ×3 (08:40→21:20)
[2021-08-25] MEDS: acetaZOLAMIDE 250 MG TABLET PO SCH ×2 (08:40→20:57)
[2021-08-25] MEDS: Cholecalciferol (D-3) 1,000 UNIT (25MCG) TABLET PO SCH (08:40)
[2021-08-25] MEDS: Magnesium Oxide 400 MG TABLET PO SCH ×2 (08:40→20:59)
[2021-08-25] MEDS: Ascorbic Acid 500 MG TABLET PO SCH (08:40)
[2021-08-25] MEDS: Doxycycline 100 MG CAPSULE PO SCH ×2 (08:40→20:59)
[2021-08-25] MEDS: rOPINIRole 1 MG TABLET PO SCH (20:57)
[2021-08-25] MEDS: Gabapentin 400 MG CAPSULE PO SCH (20:58)
[2021-08-25] MEDS: Divalproex (12 HR) 500 MG TABLET PO SCH (20:58)
[2021-08-25] MEDS: OLANZapine 5 MG TAB.RAPDIS PO SCH (20:59)
[2021-08-26 00:31] LABS: ABG Base Excess 1 mEq/L (-2 to 3); ABG HCO3 27 mEq/L (21-27); ABG Oxygen Saturation 98 % (95-98); ABG PCO2 46 mmHg (35-45); ABG PH 7.37 pH Units (7.32-7.45); ABG PO2 107 mmHg (85-104); ABG TCO2 28 mEq/L (20-26)
[2021-08-26] MEDS: Ipratropium/Albuterol Neb 3 ML IH SCH ×6 (04:24→23:51)
[2021-08-26] MEDS: *HR* Enoxaparin 40 MG/0.4 ML SYRINGE SQ SCH (04:37)
[2021-08-26 05:02] LABS: Hematocrit 30.1 % (35.3-44.9); Hemoglobin 9.4 g/dL (11.5-15.4); Mean Corpuscular HGB Conc 31.2 g/dL (31.6-35.5); Mean Corpuscular Hemoglobin 33.3 pg (28.0-33.3); Mean Corpuscular Volume 106.7 fL (83.0-100.0); Mean Platelet Volume 9.7 fL (9.4-12.4); Platelet Count 230 K/mcL (140-400); Red Blood Count 2.82 M/mcL (3.82-4.97); Red Cell Distribution Width 13.7 % (11.5-14.5); White Blood Count 10.6 K/mcL (4.3-11.1)
[2021-08-26 05:19] LABS: Alanine Aminotransferase 8 Units/L (7-52); Albumin 3.8 g/dL (3.5-5.7); Albumin/Globulin Ratio 1.7 (1.1-2.2); Alkaline Phosphatase 57 Units/L (34-104); Aspartate Amino Transferase 5 Units/L (13-39); BUN/Creatinine Ratio 33 (6-26); Bilirubin,Total 0.3 mg/dL (0.3-1.0); Blood Urea Nitrogen 29 mg/dL (8-23); Calcium 9.5 mg/dL (8.6-10.3); Carbon Dioxide 31 mEq/L (23-29); Chloride 94 mEq/L (98-107); Globulin 2.2 g/dL (2.4-3.5); Glucose 269 mg/dL (70-105); Magnesium 1.8 mg/dL (1.6-2.6); Osmolality,Calculated 293 (280-300); Potassium 3.6 mEq/L (3.5-5.1); Sodium 134 mEq/L (136-145); eGFR For African Americans > 60 (> 60); eGFR For Non-African Americans > 60 (> 60)
[2021-08-26] MEDS ORDERED: D5% in Water 1,000 ML IVC PRN (09:03)
[2021-08-26] MEDS ORDERED: *HR* Dextrose 50 % in Water (Syg) 50 ML SYRINGE IVP PRN (09:03)
[2021-08-26] MEDS ORDERED: Dextrose Gel 15 GM/37.5 ML TUBE PO PRN ×2 (09:03)
[2021-08-26] MEDS: acetaZOLAMIDE 250 MG TABLET PO SCH ×2 (10:14→20:14)
[2021-08-26] MEDS: diazePAM 2 MG TABLET PO SCH ×2 (10:14→16:42)
[2021-08-26] MEDS: Ascorbic Acid 500 MG TABLET PO SCH (10:14)
[2021-08-26] MEDS: Cholecalciferol (D-3) 1,000 UNIT (25MCG) TABLET PO SCH (10:14)
[2021-08-26] MEDS: Gabapentin 300 MG CAPSULE PO SCH (10:14)
[2021-08-26] MEDS: Doxycycline 100 MG CAPSULE PO SCH ×2 (10:14→20:16)
[2021-08-26] MEDS: Lactulose Oral Soln 20 GM/30 ML UDC PO SCH ×2 (10:15→20:21)
[2021-08-26] MEDS: Furosemide 20 MG/2 ML VIAL IVP SCH ×2 (10:15→20:22)
[2021-08-26] MEDS: MethylPREDNISolone 40 MG/ML VIAL IVP SCH ×2 (10:15→16:42)
[2021-08-26] MEDS: Magnesium Oxide 400 MG TABLET PO SCH ×2 (10:15→20:28)
[2021-08-26] MEDS: gemfibroziL 600 MG TABLET PO SCH ×2 (10:20→20:25)
[2021-08-26] MEDS: Budesonide/Formoterol 160/4.5 1 PUFF INH IH SCH ×2 (11:35→19:44)
[2021-08-26] MEDS: Insulin LISPRO 300 UNITS/3 ML VIAL SUBQ SCH ×2 (12:09→16:50)
[2021-08-26] MEDS: OLANZapine 5 MG TAB.RAPDIS PO SCH (20:13)
[2021-08-26] MEDS: Divalproex (12 HR) 500 MG TABLET PO SCH (20:15)
[2021-08-26] MEDS: rOPINIRole 1 MG TABLET PO SCH (20:15)
[2021-08-26] MEDS: Gabapentin 400 MG CAPSULE PO SCH (20:21)
[2021-08-26] MEDS ORDERED: Insulin LISPRO 300 UNITS/3 ML VIAL SUBQ SCH (21:00)
[2021-08-27] MEDS: diazePAM 2 MG TABLET PO SCH ×2 (00:25→08:40)
[2021-08-27] MEDS: MethylPREDNISolone 40 MG/ML VIAL IVP SCH ×2 (00:28→08:44)
[2021-08-27] MEDS: Ipratropium/Albuterol Neb 3 ML IH SCH ×4 (04:02→16:06)
[2021-08-27] MEDS: *HR* Enoxaparin 40 MG/0.4 ML SYRINGE SQ SCH (04:27)
[2021-08-27] MEDS: Lactulose Oral Soln 20 GM/30 ML UDC PO SCH (08:38)
[2021-08-27] MEDS: Cholecalciferol (D-3) 1,000 UNIT (25MCG) TABLET PO SCH (08:39)
[2021-08-27] MEDS: Ascorbic Acid 500 MG TABLET PO SCH (08:39)
[2021-08-27] MEDS: gemfibroziL 600 MG TABLET PO SCH (08:41)
[2021-08-27] MEDS: Magnesium Oxide 400 MG TABLET PO SCH (08:41)
[2021-08-27] MEDS: acetaZOLAMIDE 250 MG TABLET PO SCH (08:41)
[2021-08-27] MEDS: Gabapentin 300 MG CAPSULE PO SCH (08:41)
[2021-08-27] MEDS: Doxycycline 100 MG CAPSULE PO SCH (08:41)
[2021-08-27] MEDS: Furosemide 20 MG/2 ML VIAL IVP SCH (08:44)
[2021-08-27] MEDS: Insulin LISPRO 300 UNITS/3 ML VIAL SUBQ SCH ×2 (08:46→11:36)
[2021-08-27] MEDS: Budesonide/Formoterol 160/4.5 1 PUFF INH IH SCH (11:40)
[2021-08-27 13:40] VITALS: BP 129/74; PULSE 96; TEMP 97.5
[2021-08-27 16:09] VITALS: RESP 19; O2SAT 98
== END 2021-08-27 16:52 | disposition home health service (06) | DRG 207 ==
LOC: INPGRE 08-17 09:41
PROVIDERS: ADMIT Family Medicine; ATTEND Family Medicine

== ENCOUNTER 2021-10-11 16:19 | Inpatient (IN) ==
[2021-10-12] MEDS ORDERED: Ondansetron 4 MG/2 ML VIAL IVP PRN (02:03)
[2021-10-12] MEDS ORDERED: Naloxone 0.4 MG/ML INJ IVP PRN (02:03)
[2021-10-12] MEDS ORDERED: Acetaminophen 325 MG TABLET PO PRN (02:03)
[2021-10-12] MEDS ORDERED: *HR* Dextrose 50 % in Water (Syg) 50 ML SYRINGE IVP PRN (02:07)
[2021-10-12] MEDS ORDERED: D5% in Water 1,000 ML IVC PRN (02:07)
[2021-10-12] MEDS ORDERED: Dextrose Gel 15 GM/37.5 ML TUBE PO PRN ×2 (02:07)
[2021-10-12] MEDS: Ipratropium/Albuterol Neb 3 ML IH SCH ×6 (04:17→23:40)
[2021-10-12] MEDS: hydrOXYzine pamoate 25 MG CAPSULE PO SCH ×3 (04:32→22:34)
[2021-10-12] MEDS: Insulin LISPRO 300 UNITS/3 ML VIAL SUBQ SCH ×3 (08:02→17:32)
[2021-10-12] MEDS: gemfibroziL 600 MG TABLET PO SCH ×2 (08:55→22:34)
[2021-10-12] MEDS: OLANZapine 5 MG TAB.RAPDIS PO SCH (08:55)
[2021-10-12] MEDS: Gabapentin 300 MG CAPSULE PO SCH (08:55)
[2021-10-12] MEDS: Budesonide/Formoterol 160/4.5 1 PUFF INH IH SCH ×2 (09:05→19:47)
[2021-10-12] MEDS: *HR* HYDROcodone/Acet 5/325 mg TABLET PO PRN ×2 (11:04→23:56)
[2021-10-12] MEDS: diazePAM 5 MG TABLET PO SCH ×2 (15:17→22:34)
[2021-10-12 15:24] LABS: Hematocrit 28.2 % (35.3-44.9); Hemoglobin 9.2 g/dL (11.5-15.4); Mean Corpuscular HGB Conc 32.6 g/dL (31.6-35.5); Mean Corpuscular Hemoglobin 34.1 pg (28.0-33.3); Mean Corpuscular Volume 104.4 fL (83.0-100.0); Mean Platelet Volume 10.3 fL (9.4-12.4); Platelet Count 237 K/mcL (140-400); Red Cell Distribution Width 14.1 % (11.5-14.5)
[2021-10-12 15:25] LABS: Alanine Aminotransferase 38 Units/L (7-52); Albumin 3.1 g/dL (3.5-5.7); Albumin/Globulin Ratio 1.7 (1.1-2.2); Alkaline Phosphatase 57 Units/L (34-104); Aspartate Amino Transferase 18 Units/L (13-39); BUN/Creatinine Ratio 13 (6-26); Bilirubin,Total 0.3 mg/dL (0.3-1.0); Blood Urea Nitrogen 9 mg/dL (8-23); Calcium 8.6 mg/dL (8.6-10.3); Carbon Dioxide 34 mEq/L (23-29); Chloride 100 mEq/L (98-107); Globulin 1.8 g/dL (2.4-3.5); Glucose 204 mg/dL (70-105); Magnesium 1.3 mg/dL (1.6-2.6); Osmolality,Calculated 299 (280-300); Potassium 3.2 mEq/L (3.5-5.1); Sodium 142 mEq/L (136-145); Total Protein 4.9 g/dL (6.4-8.9); eGFR For African Americans > 60 (> 60); eGFR For Non-African Americans > 60 (> 60)
[2021-10-12] MEDS ORDERED: Gabapentin 400 MG CAPSULE PO SCH (20:00)
[2021-10-12] MEDS ORDERED: traZODone 50 MG TABLET PO SCH (21:00)
[2021-10-12] MEDS: Divalproex (12 HR) 500 MG TABLET PO SCH (22:33)
[2021-10-12] MEDS: rOPINIRole 1 MG TABLET PO SCH (22:34)
[2021-10-13] MEDS: Ipratropium/Albuterol Neb 3 ML IH SCH ×5 (04:18→21:01)
[2021-10-13] MEDS: *HR* Enoxaparin 30 MG/0.3 ML SYRINGE SQ SCH (06:05)
[2021-10-13 06:10] LABS: Basophils # 0.1 K/mcL (0.0-0.2); Basophils % 0.7 %; Eosinophils # 0.1 K/mcL (0.0-0.6); Eosinophils % 1.2 %; Hematocrit 31.3 % (35.3-44.9); Hemoglobin 9.4 g/dL (11.5-15.4); Immature Granulocytes % 1.3 % (0-4); Lymphocytes # 2.2 K/mcL (0.6-4.6); Lymphocytes % 24.1 %; Mean Corpuscular Hemoglobin 32.6 pg (28.0-33.3); Mean Corpuscular Volume 108.7 fL (83.0-100.0); Mean Platelet Volume 10.7 fL (9.4-12.4); Monocytes % 11.2 %; Nucleated Red Blood Cells 0.4 /100 WBC (0); Platelet Count 271 K/mcL (140-400); Red Blood Count 2.88 M/mcL (3.82-4.97); Red Cell Distribution Width 14.4 % (11.5-14.5); Segmented Neutrophils % 61.5 %; White Blood Count 9.2 K/mcL (4.3-11.1)
[2021-10-13 06:15] LABS: Neutrophils # 5.7 K/mcL (1.6-8.9)
[2021-10-13] MEDS: hydrOXYzine pamoate 25 MG CAPSULE PO SCH ×3 (07:33→14:31)
[2021-10-13] MEDS: Insulin LISPRO 300 UNITS/3 ML VIAL SUBQ SCH ×3 (08:11→16:32)
[2021-10-13] MEDS: OLANZapine 5 MG TAB.RAPDIS PO SCH (08:42)
[2021-10-13] MEDS: Ascorbic Acid 500 MG TABLET PO SCH (08:42)
[2021-10-13] MEDS: Gabapentin 300 MG CAPSULE PO SCH (08:42)
[2021-10-13] MEDS: diazePAM 5 MG TABLET PO SCH ×3 (08:42→21:10)
[2021-10-13] MEDS: gemfibroziL 600 MG TABLET PO SCH ×2 (08:42→21:10)
[2021-10-13] MEDS: Budesonide/Formoterol 160/4.5 1 PUFF INH IH SCH ×2 (10:14→21:01)
[2021-10-13] MEDS ORDERED: hydrOXYzine pamoate 25 MG CAPSULE PO PRN (15:39)
[2021-10-13] MEDS: Divalproex (12 HR) 500 MG TABLET PO SCH (21:09)
[2021-10-13] MEDS: rOPINIRole 1 MG TABLET PO SCH (21:11)
[2021-10-14] MEDS: Ipratropium/Albuterol Neb 3 ML IH SCH ×6 (01:06→20:22)
[2021-10-14] MEDS: *HR* HYDROcodone/Acet 5/325 mg TABLET PO PRN ×2 (03:38→20:47)
[2021-10-14] MEDS: *HR* Enoxaparin 30 MG/0.3 ML SYRINGE SQ SCH (05:26)
[2021-10-14] MEDS: Insulin LISPRO 300 UNITS/3 ML VIAL SUBQ SCH ×3 (08:08→17:33)
[2021-10-14] MEDS: diazePAM 5 MG TABLET PO SCH ×3 (08:10→20:48)
[2021-10-14] MEDS: Gabapentin 300 MG CAPSULE PO SCH (08:10)
[2021-10-14] MEDS: gemfibroziL 600 MG TABLET PO SCH ×2 (08:11→20:47)
[2021-10-14] MEDS: Ascorbic Acid 500 MG TABLET PO SCH (08:11)
[2021-10-14] MEDS: OLANZapine 5 MG TAB.RAPDIS PO SCH (08:11)
[2021-10-14] MEDS: Budesonide/Formoterol 160/4.5 1 PUFF INH IH SCH ×2 (10:20→20:23)
[2021-10-14] MEDS: Divalproex (12 HR) 500 MG TABLET PO SCH (20:47)
[2021-10-14] MEDS: rOPINIRole 1 MG TABLET PO SCH (20:47)
[2021-10-14 21:37] LABS: ABG Base Excess 1 mEq/L (-2 to 3); ABG HCO3 32 mEq/L (21-27); ABG Oxygen Saturation 88 % (95-98); ABG PCO2 89 mmHg (35-45); ABG PH 7.17 pH Units (7.32-7.45); ABG PO2 73 mmHg (85-104); ABG TCO2 35 mEq/L (20-26)
[2021-10-14] MEDS ORDERED: levoFLOXacin 750 MG/150 ML 750 MG/150 ML BAG IVPB ONE (21:39)
[2021-10-14] MEDS ORDERED: Furosemide 40 MG/4 ML VIAL IVP ONE (21:39)
[2021-10-14] MEDS ORDERED: Hydrocortisone Sodium Succ 100 MG/2 ML VIAL IVP ONE (21:42)
[2021-10-14] MEDS ORDERED: Vancomycin 1,000 MG in D5% in Water 250 ML IVPB ONE (21:47)
[2021-10-14 21:55] LABS: Basophils # 0.1 K/mcL (0.0-0.2); Basophils % 0.3 %; Eosinophils # 0.1 K/mcL (0.0-0.6); Eosinophils % 0.8 %; Immature Granulocytes % 1.2 % (0-4); Lymphocytes # 1.9 K/mcL (0.6-4.6); Lymphocytes % 11.2 %; Mean Corpuscular HGB Conc 30.8 g/dL (31.6-35.5); Mean Corpuscular Hemoglobin 33.3 pg (28.0-33.3); Mean Corpuscular Volume 108.3 fL (83.0-100.0); Monocytes # 0.7 K/mcL (0.0-1.3); Monocytes % 4.1 %; Neutrophils # 14.2 K/mcL (1.6-8.9); Nucleated Red Blood Cells 0.5 /100 WBC (0); Red Blood Count 3.51 M/mcL (3.82-4.97); Red Cell Distribution Width 14.5 % (11.5-14.5); Segmented Neutrophils % 82.4 %; White Blood Count 17.2 K/mcL (4.3-11.1)
[2021-10-14 22:01] LABS: Hemoglobin 11.7 g/dL (11.5-15.4)
[2021-10-14 22:02] LABS: Platelet Count 486 K/mcL (140-400)
[2021-10-14 22:03] LABS: VBG HCO3 31 mEq/L (21-27); VBG PCO2 77 mmHg (41-51); VBG PH 7.22 pH Units (7.32-7.42); VBG PO2 41 mmHg (25-50)
[2021-10-14 22:06] LABS: INR 1.3; Prothrombin Time 14.2 Seconds (9.4-12.1)
[2021-10-14 22:07] LABS: Alanine Aminotransferase 26 Units/L (7-52); Albumin 3.6 g/dL (3.5-5.7); Albumin/Globulin Ratio 1.6 (1.1-2.2); Alkaline Phosphatase 75 Units/L (34-104); Aspartate Amino Transferase 13 Units/L (13-39); BUN/Creatinine Ratio 10 (6-26); Bilirubin,Indirect 0.3 mg/dL (0.0-1.0); Bilirubin,Total 0.3 mg/dL (0.3-1.0); Blood Urea Nitrogen 8 mg/dL (8-23); Carbon Dioxide 34 mEq/L (23-29); Chloride 98 mEq/L (98-107); Globulin 2.3 g/dL (2.4-3.5); Glucose 211 mg/dL (70-105); Osmolality,Calculated 293 (280-300); Potassium 3.9 mEq/L (3.5-5.1); Sodium 139 mEq/L (136-145); Total Protein 5.9 g/dL (6.4-8.9); eGFR For African Americans > 60 (> 60); eGFR For Non-African Americans > 60 (> 60)
[2021-10-14] MEDS ORDERED: Isovue-370 500 ML BOTTLE IVP ONE (22:20)
[2021-10-14 22:21] LABS: Troponin I 0.33 ng/mL (< 0.04)
[2021-10-14] MEDS ORDERED: Nitroglycerin 1 INCH/GM PACKET TP ONE (22:28)
[2021-10-15 00:02] LABS: VBG HCO3 30 mEq/L (21-27); VBG PCO2 47 mmHg (41-51); VBG PH 7.41 pH Units (7.32-7.42); VBG PO2 89 mmHg (25-50)
[2021-10-15] MEDS: Ipratropium/Albuterol Neb 3 ML IH SCH ×2 (00:40→04:56)
[2021-10-15 01:48] VITALS: O2SAT 98
[2021-10-15] MEDS ORDERED: 0.9 % Sodium Chloride 500 ML IV ONE (03:38)
[2021-10-15 03:54] LABS: Hematocrit 31.8 % (35.3-44.9); Mean Corpuscular HGB Conc 31.4 g/dL (31.6-35.5); Mean Corpuscular Hemoglobin 33.2 pg (28.0-33.3); Mean Corpuscular Volume 105.6 fL (83.0-100.0); Mean Platelet Volume 9.9 fL (9.4-12.4); Platelet Count 300 K/mcL (140-400); Red Blood Count 3.01 M/mcL (3.82-4.97); Red Cell Distribution Width 14.4 % (11.5-14.5); White Blood Count 18.6 K/mcL (4.3-11.1)
[2021-10-15 03:59] LABS: ABG Base Excess 6 mEq/L (-2 to 3); ABG HCO3 33 mEq/L (21-27); ABG Oxygen Saturation 93 % (95-98); ABG PCO2 64 mmHg (35-45); ABG PH 7.32 pH Units (7.32-7.45); ABG PO2 74 mmHg (85-104); ABG TCO2 35 mEq/L (20-26)
[2021-10-15 04:07] LABS: Alanine Aminotransferase 21 Units/L (7-52); Albumin 3.1 g/dL (3.5-5.7); Albumin/Globulin Ratio 1.5 (1.1-2.2); Alkaline Phosphatase 54 Units/L (34-104); Aspartate Amino Transferase 10 Units/L (13-39); BUN/Creatinine Ratio 11 (6-26); Bilirubin,Total 0.4 mg/dL (0.3-1.0); Blood Urea Nitrogen 9 mg/dL (8-23); Calcium 8.6 mg/dL (8.6-10.3); Carbon Dioxide 37 mEq/L (23-29); Chloride 96 mEq/L (98-107); Globulin 2.1 g/dL (2.4-3.5); Glucose 187 mg/dL (70-105); Magnesium 1.2 mg/dL (1.6-2.6); Osmolality,Calculated 296 (280-300); Potassium 4.1 mEq/L (3.5-5.1); Sodium 141 mEq/L (136-145); Total Protein 5.2 g/dL (6.4-8.9); eGFR For African Americans > 60 (> 60); eGFR For Non-African Americans > 60 (> 60)
[2021-10-15 04:22] VITALS: BP 103/78; PULSE 98
[2021-10-15 05:04] VITALS: RESP 29; TEMP 99
== END 2021-10-15 04:35 | disposition short-term general hospital (02) | DRG 189 ==
LOC: INPGRE 22:00
PROVIDERS: ADMIT Family Medicine; ATTEND Family Medicine